=== PATIENT | male | born 1980 | race Caucasian/White ===

== ENCOUNTER 2023-07-02 09:38 | Emergency (ER) | payer OTHER, SELFPAY ==
[2023-07-02 09:46] VITALS: BP 113/75
--- NOTE | 2023-07-02 10:59 | ED.GENMED ---
History of Present Illness
General
Chief Complaint: Abdominal Pain
Source: patient
Exam Limitations: none
Time Seen by Provider: 07/02/23 10:42
Travel History
Have you had any contact with someone who has COVID-19?: No
Do you have any symptoms of coronavirus? Fever > 100 degrees, chills, cough, shortness of breath, sore throat, loss of taste or smell, muscle aches, or headache?: No
History of Present Illness
History of Present Illness:
42-year-old male presents with sudden onset right flank pain that woke him up from sleep this morning. It was sharp stabbing in nature. No vomiting. The pain is since subsided somewhat. No chest pain or shortness of breath. He also notes an
ongoing headache over the past week or so. No fevers. No urinary symptoms. No other complaints at this time
Past History
Past History
ED Past Medical History: Psychiatric and Other
Social History
Tobacco: Non-smoker
Personal: Single
Living: with family
Phy Exam
Physical Exam
Physical Exam:
General: Well-appearing male no acute respiratory distress
HEENT: Normocephalic atraumatic
Heart: Regular rate and rhythm no murmurs
Lungs: Clear to auscultation bilaterally
Abdomen: Soft mildly tender to the right costovertebral angle. Normal bowel sounds nondistended
Course
Orders/Labs/Results
Orders:
Orders
07/02/23 10:56
CT Abd/pel Without Iv Or Oral Urgent
Comment:
Reason For Exam: right flank pain
Urinalysis Reflex To Culture Urgent
Ketorolac [Toradol] 15 mg IV NOW STA
07/02/23 11:18
Complete Blood Count/With Diff Urgent
Comprehensive Metabolic Panel Urgent
Abnormal Lab Results
07/02/23
11:18
MPV 10.5 H fL
(7.4-10.4)
Absolute Neuts (auto) 7.2 H 10^3/uL
(1.4-6.5)
Absolute Monos (auto) 0.9 H 10^3/uL
(0.1-0.6)
Lymphocytes % 17.8 L %
(20.5-51.1)
BUN 22 H mg/dl
(9-20)
Creatinine 1.4 H mg/dL
(0.7-1.3)
Glucose 121 H mg/dl
(70-99)
07/02/23 11:18
07/02/23 11:18
Vital Signs
Initial and Last Documented VS:
Initial Vital Signs
Temp Pulse Resp BP Pulse Ox
97.7 F 88 20 113/75 100
07/02/23 09:46 07/02/23 09:46 07/02/23 09:46 07/02/23 09:46 07/02/23 09:46
Last Documented Vital Signs
Temp Pulse Resp BP Pulse Ox
97.7 F 88 20 113/75 100
07/02/23 09:46 07/02/23 09:46 07/02/23 09:46 07/02/23 09:46 07/02/23 09:46
MDM/Problems Addressed
Differential Diagnosis Includes:
Right flank pain. Consider renal colic versus musculoskeletal flank pain.. Will check labs urine and CT. Toradol ordered
*Critical Care Note
Total Time (30-74mins, 75-104mins- exclusive of procedures): Not Applicable
Update Note
Update Note:
CT negative. Patient did not provide urine sample but pain is resolved. Suspect possible passed kidney stone versus muscular flank pain. Labs reviewed. White count normal. Creatinine 1.4 but this is stable
ED Attending Note
-
Portions of this chart may have been created with voice recognition software.� Occasional wrong word or��sound alike� substitutions may have occurred due to the inherent limitations of voice recognition software.
Discharge Plan
Departure
Patient Disposition: Home (Routine Discharge)
Date of Disposition: 07/02/23
Time of Disposition: 13:53
Patient with high blood pressure during this ER visit?: No
Discharge Problem:
Acute flank pain
Instructions: Flank Pain ED
Prescriptions:
No Action
clindamycin HCl 300 MG capsule
300 mg PO QID Qty: 28 0RF
prednisone 50 mg tablet
50 mg PO DAILY 4 Days Qty: 4 0RF
albuterol sulfate 90 mcg/actuation aerosol powdr breath activated
2 inh inhalation Q6H PRN (Reason: shortness of breath or wheezing) Qty: 1 0RF
Referrals:
Joseph Echosl MD [Family Provider] -
Activity Restrictions/Additional Instructions:
Please return here for worsening symptoms otherwise follow-up with your family doctor
Interventions
Interventions:
*Risk Screen - Suicide Last Done: 07/02/23 11:21
*General Assessment Last Done: 07/02/23 11:03
*Neglect/Abuse Screening Last Done: 07/02/23 11:20
ED- Fall Risk Assessment Last Done: 07/02/23 11:03
*ED COVID-19 Vaccine History Last Done: 07/02/23 11:03
MQ-Vlfiai-Cisvlslwwe Assessment Last Done: 07/02/23 11:03
Discharge Date and Time
Print Language: DANISH
[2023-07-02 11:03] VITALS: BMI 31.9
[2023-07-02] MEDS: TORADOL 15 MG IV (11:16)
[2023-07-02 11:24] LABS: % Basophils 0.5 % (0-2); % Eosinophils 0.9 % (0-6); % Immature Granulocytes 0.3 % (0-0.5); % Lymphocytes 17.8 % (20.5-51.1); % Monocytes 8.6 % (1.7-9.3); % Neutrophils 71.9 % (42.2-75.2); Absolute Basophils 0.1 10^3/uL (0-0.2); Absolute Eosinophils 0.1 10^3/uL (0-0.7); Absolute Lymphocytes 1.8 10^3/uL (1.2-3.4); Absolute Monocytes 0.9 10^3/uL (0.1-0.6); Absolute Neutrophils 7.2 10^3/uL (1.4-6.5); Hematocrit 47.6 % (39.0-52.0); Mean Corp Hgb Conc. 35.7 g/dL (33.0-37.0); Mean Corpuscular Hgb 29.9 pg (27.0-31.0); Mean Corpuscular Volume 83.7 fL (80.0-94.0); Mean Platelet Volume 10.5 fL (7.4-10.4); Nucleated Red Blood Cells % 0 % (-); Platelet Count 346 10^3/uL (130-400); Red Blood Cell Count 5.69 10^6/uL (4.70-6.10); Red Cell Dist. Width 13.7 % (11.5-14.5); White Blood Cell Count 10.1 10^3/uL (4.8-10.8)
[2023-07-02 11:44] LABS: ALT (SGPT) 15 U/L (0-50); AST (SGOT) 18 U/L (17-59); Albumin 4.3 g/dl (3.5-5.0); Alkaline Phosphatase 54 U/L (38-126); Blood Urea Nitrogen 22 mg/dl (9-20); Calcium 9.8 mg/dl (8.4-10.2); Carbon Dioxide 27 mmol/L (22-30); Chloride 101 mmol/L (98-107); Estimated Creatinine Clearance 93 ml/min; Glucose 121 mg/dl (70-99); Potassium 3.6 mmol/L (3.5-5.1); Sodium 135 mmol/L (135-145); Total Bilirubin 0.9 mg/dl (0.2-1.3); Total Protein 6.9 g/dl (6.3-8.2); eGFR > 60.00
[2023-07-02 14:15] VITALS: BP 113/69
--- NOTE | 2023-07-02 14:15 | EDRN ---
Reviewed discharge instructions with patient. Verbalized understanding. Ambulated with steady gait to the lobby.
== END 2023-07-02 14:15 | disposition home or self-care (01) ==
LOC: EMR 09:38
PROVIDERS: Physician Assistant; EMERGENCY PHYSICIAN Emergency Medicine; FAMILY PHYSICIAN Family Medicine
DX: R10.9 Unspecified abdominal pain (principal)
CPT/HCPCS: 99284; 96374; 74176; 80053; 85025

== ENCOUNTER 2023-09-27 16:09 | Emergency (ER) | payer OTHER, SELFPAY ==
[2023-09-27 16:14] VITALS: BP 112/75
--- NOTE | 2023-09-27 17:27 | ED.GENMED ---
History of Present Illness
General
Chief Complaint: Musculo-Skeletal Complaint
Time Seen by Provider: 09/27/23 16:18
History of Present Illness
History of Present Illness:
43-year-old male presents the emergency department for evaluation of acute on chronic right shoulder pain. States he has had shoulder pain for 1 year but while attempting to lift a heavy shelf today the pain worsened. Denies any weakness or
sensation of the shoulder clicking or popping over the course of the year. Has declined to seek any medical evaluation for this
Past History
Past History
ED Past Medical History: Psychiatric and Other
Social History
Tobacco: Non-smoker
Personal: Single
Living: with family
Review of Systems
Review of Systems
Allergies reviewed?: Yes
All Other Systems: ROS reviewed and negative except as documented in HPI and ROS
Phy Exam
Physical Exam
Physical Exam:
GEN: Well appearing, NAD, WDWN
HEENT: Oral mucosa moist, no scleral icterus
Cardiac: Regular rate
Lung: No respiratory distress, no tachypnea
MSK: No gross deformity or injuries, right shoulder range of motion is limited to 90 degrees of abduction and approximately 135 degrees of external rotation, no obvious crepitus
Skin: Good color, no pallor or jaundice, no rashes
Neuro: AO x3, moves all extremities freely
Psych: Calm, cooperative
Course
Orders/Labs/Results
Orders:
Orders
09/27/23 16:56
CR Shoulder, Trauma - Right Urgent
Comment:
Reason For Exam: injury
Vital Signs
Initial and Last Documented VS:
Initial Vital Signs
Temp Pulse Resp BP Pulse Ox
98.5 F 89 16 112/75 96
09/27/23 16:14 09/27/23 16:14 09/27/23 16:14 09/27/23 16:14 09/27/23 16:14
Last Documented Vital Signs
Temp Pulse Resp BP Pulse Ox
98.5 F 89 16 112/75 96
09/27/23 16:14 09/27/23 16:14 09/27/23 16:14 09/27/23 16:14 09/27/23 16:14
MDM/Problems Addressed
MDM/Problems Addressed:
X-rays show no evidence for acute osseous abnormality. Likely chronic rotator cuff or labral pathology. Recommend orthopedic follow-up, he will be relocating out of the area shortly and plans to follow-up with somebody through [facility] or [place]
*Critical Care Note
Total Time (30-74mins, 75-104mins- exclusive of procedures): Not Applicable
ED Attending Note
-
Portions of this chart may have been created with voice recognition software.� Occasional wrong word or��sound alike� substitutions may have occurred due to the inherent limitations of voice recognition software.
Discharge Plan
Departure
Patient Disposition: Home (Routine Discharge)
Date of Disposition: 09/27/23
Time of Disposition: 17:34
Patient with high blood pressure during this ER visit?: No
Discharge Problem:
Sprain of right shoulder
Instructions: Rotator Cuff Injury (DC)
Prescriptions:
New
meloxicam 15 mg tablet
15 mg PO DAILY Qty: 14 0RF
No Action
clindamycin HCl 300 MG capsule
300 mg PO QID Qty: 28 0RF
prednisone 50 mg tablet
50 mg PO DAILY 4 Days Qty: 4 0RF
albuterol sulfate 90 mcg/actuation aerosol powdr breath activated
2 inh inhalation Q6H PRN (Reason: shortness of breath or wheezing) Qty: 1 0RF
Referrals:
Michael Che, DO [Family Provider] -
Interventions
Interventions:
*Risk Screen - Suicide Last Done: 09/27/23 17:30
*General Assessment Last Done: 09/27/23 16:14
*Neglect/Abuse Screening Last Done: 09/27/23 17:30
ED- Fall Risk Assessment Last Done: 09/27/23 17:41
*ED COVID-19 Vaccine History Last Done: 09/27/23 16:14
*Nursing Disposition Last Done: 09/27/23 17:41
ED-Musculoskeletal Assessment Last Done: 09/27/23 17:29
Discharge Date and Time
Discharge Date/Time: 09/27/23 17:42
Print Language: YI
== END 2023-09-27 17:42 | disposition home or self-care (01) ==
LOC: EMR 16:09
PROVIDERS: EMERGENCY PHYSICIAN Emergency Medicine; FAMILY PHYSICIAN Family Medicine
DX: S43.401A Unspecified sprain of right shoulder joint, initial encounter (principal); X50.0XXA Overexertion from strenuous movement or load, initial encounter
CPT/HCPCS: 99283; 73030